=== PATIENT | female | born 1970 | race Caucasian/White ===

== ENCOUNTER 2018-02-09 10:51 | Emergency (ER) | payer OTHER ==
[~2018-02-09] VITALS: Ht 167.6 cm; Wt 77.1 kg
[~2018-02-09 10:51] MED LIST: AMBIEN5 MG PO; ATIVAN0.5 M1 PO; CEFEPIME HCL2 G/VIAL IV; CIPRO250 MG PO; CIPRO500 MG; DITROPAN XL5 MG PO; ESTR0.624; INTESTINEX680 MG PO; KETO10TA2 PO; Neurontin PO; PEPCID20 MG PO; PERCOCET 5/3251 TAB PO; SURFAK240 M1 PO; ZOLOFT50 MG PO
== END 2018-02-09 17:12 | disposition home or self-care (01) ==
LOC: ER 10:51
DX: N39.0 Urinary tract infection, site not specified (principal)